=== PATIENT | male | born 1985 | race Caucasian/White ===

== ENCOUNTER 2018-12-12 15:26 | Emergency (ER) | payer SELFPAY ==
--- NOTE | 2018-12-12 15:41 | ER Report ---
History and Physical Time Seen By MD: 15:41 Hx. of Stated Complaint: AREA OF HEAT PAIN AND REDNESS OVER R FOOT, PAIN BEGAN YESTERDAY, NO KNOWN INJURY HPI/ROS CHIEF COMPLAINT: Right foot pain HISTORY OF PRESENT ILLNESS: 33-year-old male patient presents to emergency room with complaint of right foot pain. Patient states that he has had pain for the past several days. Patient states that he has swelling at the base of his second and third toe. He states that he has significant amounts of pain when he walks. He did note that he has redness and heat to the top of the foot. Patient states that he has not had any injury to the foot. He denies having any fevers or chills. He denies any nausea, vomiting or diarrhea. Patient states that he does have significant amounts of pain with ambulation. He states he does tend to walk on the outside of his foot to prevent from putting a a lot of weight on the bottom of his foot. REVIEW OF SYSTEMS: Respiratory: No cough, no dyspnea. Cardiovascular: No chest pain, no palpitations. Gastrointestinal: No vomiting, no abdominal pain. Musculoskeletal: No back pain. Allergies: Coded Allergies: No Known Drug Allergies (Unverified , 12/12/18) Home Meds Active Scripts Hydrocodone Bit/Acetaminophen (HYDROCODON-ACETAMINOPHEN 5-325) 1 Each Tablet, 1 EACH PO Q4-6H PRN for PAIN, #8 TAB Prov:TRA MURCIA 12/12/18 Sulfamethoxazole/Trimet 800-160 Mg Tab (BACTRIM DS TABLET) 1 Each Tablet, 1 TAB PO Q12H, #20 TAB Prov:TRA MURCIA 12/12/18 Past Medical/Surgical History Patient has a past medical history of cellulitis, marijuana abuse, depression. Patient denies any surgical history. Reviewed Nurses Notes: Yes Hx Substance Use Disorder: Yes (WEED) Hx Alcohol Use: No Constitutional Vital Sign - Last 24 Hours 12/12/18 12/12/18 12/12/18 12/12/18 15:26 15:33 15:35 15:41 Temp 98.1 Pulse ??? 69 74 Resp 16 B/P (MAP) 120/85 (97) 120/85 Pulse Ox 96 96 O2 Delivery Room Air 12/12/18 12/12/18 12/12/18 12/12/18 15:56 16:00 16:11 16:26 Pulse ??? 64 75 B/P (MAP) 114/64 (81) Pulse Ox 93 95 94 12/12/18 12/12/18 12/12/18 12/12/18 16:30 16:56 17:00 17:11 Pulse 65 69 B/P (MAP) 102/81 (88) 127/77 (94) Pulse Ox 96 100 12/12/18 12/12/18 12/12/18 17:16 17:30 17:31 Pulse 68 77 B/P (MAP) 106/92 (97) Pulse Ox 96 96 Physical Exam General Appearance: The patient is alert, has no immediate need for airway protection and no current signs of toxicity. Respiratory: Chest is non tender, lungs are clear to auscultation. Cardiac: regular rate and rhythm Gastrointestinal: Abdomen is soft and non tender, no masses, bowel sounds normal. Musculoskeletal: Neck: Neck is supple and non tender. Extremities have full range of motion and are non tender. Patient does have erythema, swelling to the right foot. Is tender to touch. Does feel a have some swelling on the bottom of the foot underneath the second third toes. Skin: No rashes or lesions. DIFFERENTIAL DIAGNOSIS: After history and physical exam differential diagnosis was considered for cellulitis, gout, abscess. Medical Decision Making Data Points Result Diagram: 12/12/18 1610 12/12/18 1610 Laboratory Hematology Test 12/12/18 16:10 Red Blood Count 5.34 M/uL (4.00-5.60) Mean Corpuscular Volume 84.9 fL (80.0-96.0) Mean Corpuscular Hemoglobin 28.9 pg (26.0-33.0) Mean Corpuscular Hemoglobin Concent 34.1 g/dL (32.0-36.0) Red Cell Distribution Width 13.8 % (11.5-14.5) Mean Platelet Volume 8.3 fL (7.2-11.1) Neutrophils (%) (Auto) 69.5 % (39.4-72.5) Lymphocytes (%) (Auto) 21.7 % (17.6-49.6) Monocytes (%) (Auto) 7.5 % (4.1-12.4) Eosinophils (%) (Auto) 0.9 % (0.4-6.7) Basophils (%) (Auto) 0.4 % (0.3-1.4) Nucleated RBC Relative Count (auto) 0.0 /100WBC Neutrophils # (Auto) 7.7 K/uL (2.0-7.4) Lymphocytes # (Auto) 2.4 K/uL (1.3-3.6) Monocytes # (Auto) 0.8 K/uL (0.3-1.0) Eosinophils # (Auto) 0.1 K/uL (0.0-0.5) Basophils # (Auto) 0.0 K/uL (0.0-0.1) Nucleated RBC Absolute Count (auto) 0.00 K/uL Sodium Level 141 mmol/L (137-145) Potassium Level 4.0 mmol/L (3.5-5.0) Chloride Level 102 mmol/L (98-107) Carbon Dioxide Level 30 mmol/L (22-30) Blood Urea Nitrogen 12 mg/dl (9-21) Creatinine 0.90 mg/dl (0.66-1.25) Glomerular Filtration Rate Calc > 60.0 Random Glucose 107 mg/dl (75-110) Calcium Level 9.2 mg/dl (8.4-10.2) Total Bilirubin 0.3 mg/dl (0.2-1.3) Aspartate Amino Transf (AST/SGOT) 37 U/L (0-35) Alanine Aminotransferase (ALT/SGPT) 46 U/L (0-56) Alkaline Phosphatase 62 U/L (0-126) Total Protein 7.5 g/dl (6.3-8.2) Albumin 4.4 g/dl (3.5-5.0) Chemistry Test 12/12/18 16:10 White Blood Count 11.1 k/uL (4.5-11.0) Red Blood Count 5.34 M/uL (4.00-5.60) Hemoglobin 15.5 g/dL (14.0-18.0) Hematocrit 45.4 % (42.0-52.0) Mean Corpuscular Volume 84.9 fL (80.0-96.0) Mean Corpuscular Hemoglobin 28.9 pg (26.0-33.0) Mean Corpuscular Hemoglobin Concent 34.1 g/dL (32.0-36.0) Red Cell Distribution Width 13.8 % (11.5-14.5) Platelet Count 225 K/uL (150-450) Mean Platelet Volume 8.3 fL (7.2-11.1) Neutrophils (%) (Auto) 69.5 % (39.4-72.5) Lymphocytes (%) (Auto) 21.7 % (17.6-49.6) Monocytes (%) (Auto) 7.5 % (4.1-12.4) Eosinophils (%) (Auto) 0.9 % (0.4-6.7) Basophils (%) (Auto) 0.4 % (0.3-1.4) Nucleated RBC Relative Count (auto) 0.0 /100WBC Neutrophils # (Auto) 7.7 K/uL (2.0-7.4) Lymphocytes # (Auto) 2.4 K/uL (1.3-3.6) Monocytes # (Auto) 0.8 K/uL (0.3-1.0) Eosinophils # (Auto) 0.1 K/uL (0.0-0.5) Basophils # (Auto) 0.0 K/uL (0.0-0.1) Nucleated RBC Absolute Count (auto) 0.00 K/uL Glomerular Filtration Rate Calc > 60.0 Calcium Level 9.2 mg/dl (8.4-10.2) Total Bilirubin 0.3 mg/dl (0.2-1.3) Aspartate Amino Transf (AST/SGOT) 37 U/L (0-35) Alanine Aminotransferase (ALT/SGPT) 46 U/L (0-56) Alkaline Phosphatase 62 U/L (0-126) Total Protein 7.5 g/dl (6.3-8.2) Albumin 4.4 g/dl (3.5-5.0) EKG/Imaging Imaging INDICATION: foot pain, possible abscess. DATE: 12/12/2018 4:59 PM. TECHNIQUE: CT FOOT W/ RT. Contrast-enhanced axial CT imaging was performed through the right foot and ankle with sagittal and coronal reformats. 90 mL Iso carmen-370 administered. One of the following dose optimization techniques was utilized in the performance of this exam: Automated exposure control; adjustment of the mA and/or kV according to the patient's size; or use of an iterative reconstruction technique. Specific details can be referenced in the facility's radiology CT exam operational policy. COMPARISON: No comparison available. FINDINGS: Bony alignment is normal. There is no fracture or dislocation. The ossific densities at the tip of the distal fibula are well corticated but could be from old injury. Incidental os trigonum. Mild to moderate midfoot degenerative findings most notable at the dorsal margin of the navicular and middle cuneiform. Mild enthesopathy at the Achilles attachment at the calcaneus. A discrete fluid collection or abscess is not identified. There is mild soft tissue edema along the undersurface of the foot near the head of the first metatarsal. IMPRESSION: 1. No acute osseous abnormality. 2. A discrete fluid collection or abscess is not identified. Report Dictated By: Khurram Dailey MD at 12/12/2018 4:59 PM Report E-Signed By: Khurram Dailey MD at 12/12/2018 5:04 PM ED Course/Re-evaluation ED Course Patient has been doing examined, history and physical were obtained. Differential diagnoses were considered. On examination patient did have some swelling, erythema to the right foot. A CT scan of the foot was done looking for soft tissue abscess. There is no fluid filled areas. There was some swelling noted. This appears to be more of a cellulitis. We will go ahead and treat him with antibiotics. I discussed findings with patient. Patient did request something for pain. I will give him a limited supply of pain medication get through the next 48 hours. At that time states pain will be significant. Patient is return to emergency room if condition worsens. He is follow-up with his primary care provider next week. Patient verbalized understanding and agreement with plan. Decision to Disposition Date: Dec 12, 2018 Decision to Disposition Time: 17:20 Depart Departure Latest Vital Signs Vital Signs Date Time Temp Pulse Resp B/P (MAP) Pulse Ox O2 Delivery O2 Flow Rate FiO2 12/12/18 17:31 77 96 12/12/18 17:30 106/92 (97) 12/12/18 15:35 98.1 16 Room Air Impression: Primary Impression: Cellulitis of right foot Condition: Improved Disposition: HOME OR SELF-CARE New Scripts Hydrocodone Bit/Acetaminophen (HYDROCODON-ACETAMINOPHEN 5-325) 1 Each Tablet 1 EACH PO Q4-6H PRN for PAIN, #8 TAB Prov: TRA MURCIA 12/12/18 Sulfamethoxazole/Trimet 800-160 Mg Tab (BACTRIM DS TABLET) 1 Each Tablet 1 TAB PO Q12H, #20 TAB Prov: TRA MURCIA 12/12/18 Patient Instructions: Cellulitis (ED) Additional Instructions: Limit activity by pain. Get plenty of rest. Follow up with your primary care provider in the next week. Return to the ER if condition worsens. Elevate foot when not active. Take the medication as prescribed. TRA MURCIA Dec 12, 2018 15:41
[2018-12-12] MEDS ORDERED: IOPAMIDOL 76% 100 ML INFUS BTL 100 ML ONE (16:20)
[2018-12-12 16:22] LABS: PLATELET COUNT, AUTOMATED 225 K/uL (150-450)
[2018-12-12] MEDS ORDERED: cefTRIAXone(*) 1 GM VIAL 1 GM in NS(*) 0.9% 100 ML ADDVANT BAG 100 ML IVPB ONE (16:55)
--- NOTE | 2018-12-12 17:08 | RADIOLOGY IMAGING REPORT ---
FACILITY: [facility] - [place] PATIENT NAME: Hari Hollis : 1985 MR: [id number] V: [id number] EXAM DATE: ORDERING PHYSICIAN: TRA MURCIA TECHNOLOGIST: Location: [facility] Patient: Hari Hollis : 1985 Visit/Account:[id number] Date of Sevice: 12/12/2018 INDICATION: foot pain, possible abscess. DATE: 12/12/2018 4:59 PM. TECHNIQUE: CT FOOT W/ RT. Contrast-enhanced axial CT imaging was performed through the right foot an d ankle with sagittal and coronal reformats. 90 mL Isovue-370 administered. One of the following do se optimization techniques was utilized in the performance of this exam: Automated exposure control; adjustment of the mA and/or kV according to the patient's size; or use of an iterative reconstructio n technique. Specific details can be referenced in the facility's radiology CT exam operational [place]. COMPARISON: No comparison available. FINDINGS: Bony alignment is normal. There is no fracture or dislocation. The ossific densities at t he tip of the distal fibula are well corticated but could be from old injury. Incidental os trigonum . Mild to moderate midfoot degenerative findings most notable at the dorsal margin of the navicular and middle cuneiform. Mild enthesopathy at the Achilles attachment at the calcaneus. A discrete fluid collection or abscess is not identified. There is mild soft tissue edema along the undersurface of the foot near the head of the first metatarsal. IMPRESSION: 1. No acute osseous abnormality. 2. A discrete fluid collection or abscess is not identified. Report Dictated By: Khurram Dailey MD at 12/12/2018 4:59 PM Report E-Signed By: Khurram Dailey MD at 12/12/2018 5:04 PM WSN:[id number]
[2018-12-12] MEDS ORDERED: SULF-198 PO (17:22)
[2018-12-12] MEDS ORDERED: HYDR-385 PO (17:29)
[2018-12-12 17:30] VITALS: BP 106/92
== END 2018-12-12 17:41 | disposition home or self-care (01) ==
LOC: ER 15:44
DX: L03.115 Cellulitis of right lower limb (principal)
CPT/HCPCS: 73701; 85025; 96365; 99284; J0696; J7050; Q9967; 82040; 82247; 82310; 82374; 82435; 82565; 82947; 84075; 84132; 84155; 84295; 84450; 84460; 84520

== ENCOUNTER 2019-05-31 21:12 | Emergency (ER) | payer SELFPAY ==
[~2019-05-31 21:12] MED LIST: HYDR-385 PO; SULF-198 PO
--- NOTE | 2019-05-31 21:15 | ER Report ---
History and Physical Time Seen By MD: 21:11 (ELISHA BLANCHARD DO) HPI/ROS CHIEF COMPLAINT: Left knee swelling HISTORY OF PRESENT ILLNESS: 33-year-old male presents with painful left knee swe lling. He recalls no trauma. He had spontaneous swelling over the last 2 days. He is unable to straighten his knee all the way it feels like is a lot of pressure and it. He's had no fever, chills or recent illness. Patient admits he does have a history of gout with numerous toe swelling events. 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 There are no abrasions or open wounds to suggest potential infection. (ELISHA BLANCHARD DO) Allergies: Coded Allergies: No Known Drug Allergies (Unverified , 05/31/19) Home Meds Active Scripts Hydrocodone Bit/Acetaminophen (HYDROCODON-ACETAMINOPHEN 5-325) 1 Each Tablet, 1 EACH PO Q4-6H PRN for PAIN, #12 TAKE ONE TABLET BY MOUTH EVERY 4-6 HOURS NEEDED FOR PAIN Prov:ELISHA BLANCHARD DO 05/31/19 Prednisone (PREDNISONE) 20 Mg Tablet, 20 MG PO QDAY for reduced joint inflammation, #9 2 Refills 2 pills by mouth daily for 3 days then 1 pill by mouth for 3 days Prov:ELISHA BLANCHARD 05/31/19 Discontinued Scripts Hydrocodone Bit/Acetaminophen (HYDROCODON-ACETAMINOPHEN 5-325) 1 Each Tablet, 1 EACH PO Q4-6H PRN for PAIN, #8 TAB Prov:TRA MURCIA [facility] 12/12/18 Sulfamethoxazole/Trimet 800-160 Mg Tab (BACTRIM DS TABLET) 1 Each Tablet, 1 TAB PO Q12H, #20 TAB Prov:TRA MURCIA [facility] 12/12/18 Reviewed Nurses Notes: Yes Old Medical Records Reviewed: Yes (ELISHA BLANCHARD DO) Hx Substance Use Disorder: Yes (WEED) Hx Alcohol Use: No (ELISHA BLANCHARD DO) Constitutional Vital Sign - Last 24 Hours 05/31/19 21:17 Temp 98.1 Pulse 74 Resp 12 B/P (MAP) 150/93 Pulse Ox 94 O2 Delivery Room Air (ELLE PRATHER [employer]-) Physical Exam General appearance: Alert no distress. Respiratory: Chest is non tender, lungs are clear to auscultation. Cardiac: Regular rate and rhythm Extremities: Examination of the left knee reveals a joint effusion. There is no overlying erythema or abrasion. The joint feels warm to palpation. There is ballotable fluid under the patella. Patient is able to flex his knee to about 90 but has difficulty with pain and pressure. DIFFERENTIAL DIAGNOSIS: After history and physical exam differential diagnosis was considered for sprain, strain, fracture, dislocation, contusion, doubt, osteoarthritis, septic joint (ELISHA BLANCHARD DO) Medical Decision Making EKG/Imaging Imaging X-ray: Left knee, 3 views was obtained. I viewed the images myself on the PACS system. My interpretation of the images is: No fracture no dislocation or malalignment. The radiologist interpretation had no clinically significant variation from this interpretation. (ELISHA BLANCHARD DO) ED Course/Re-evaluation ED Course Patient was admitted to an examination room. H&P was done. The dental diagnoses was considered. Patient with acute knee swelling. He reports a suspicious history of gout in the past. Patient has diagnostic x-rays which are unremarkable. Patient has arthrocentesis performed. A specimen was sent off to the lab. It's consistent with knee arthritis. There were no crystals seen. Culture and Gram stain are pending. Patient's advised conservative treatment with ibuprofen and Lortab for pain relief. He's advised to rest for for 5 days. Patient advised to follow-up with primary care. He is provided numbers for primary care providers. Decision to Disposition Date: May 31, 2019 Decision to Disposition Time: 21:54 (ELISHA BLANCHARD DO) ED Course Procedure: Arthrocentesis. After verbal informed consent from patient explaining the risks including infection and bleeding a arthrocentesis was performed on the left knee. The arthrocentesis was performed after the patient was prepped and draped in the usual fashion. The joint was anesthetized with 1% lidocaine. Approximately 18 cc of aida colored, viscous fluid was obtained. There were no complications. The procedure was performed by myself. (ELLE PRATHER) Depart Departure Latest Vital Signs Vital Signs Date Time Temp Pulse Resp B/P (MAP) Pulse Ox O2 Delivery O2 Flow Rate FiO2 05/31/19 21:17 98.1 74 12 150/93 94 Room Air (ELLE PRATHER) Impression: Primary Impression: Effusion, left knee Additional Impression: Gout Condition: Improved Disposition: HOME OR SELF-CARE Referrals: MILTON TODD MD, FARRUKH MD New Scripts Hydrocodone Bit/Acetaminophen (HYDROCODON-ACETAMINOPHEN 5-325) 1 Each Tablet 1 EACH PO Q4-6H PRN for PAIN, #12 TAKE ONE TABLET BY MOUTH EVERY 4-6 HOURS NEEDED FOR PAIN Prov: ELISHA BLANCHARD DO 05/31/19 Prednisone (PREDNISONE) 20 Mg Tablet 20 MG PO QDAY for reduced joint inflammation, #9 2 Refills 2 pills by mouth daily for 3 days then 1 pill by mouth for 3 days Prov: LOELISHA Mackay DO 05/31/19 Patient Instructions: Arthritis (ED) Additional Instructions: Take ibuprofen 200 mg 3-4 tablets 3 times a day with food Apply ice packs to your knee for the 1st 2 days then switch to heat such as a heating pad Rest as much as possible over the next 4-5 days. Follow-up with your primary care doctor to have a blood uric acid level checked Problem Qualifiers Additional Impression: Gout Gout site: knee Gout etiology: unspecified cause Chronicity: acute Laterality: left Qualified Codes: M10.9 - Gout, unspecified ELISHA BLANCHARD DO May 31, 2019 21:15 ELLE PRATHER [facility] May 31, 2019 21:48
[2019-05-31 21:17] VITALS: BP 150/93
[2019-05-31] MEDS ORDERED: PRED20TA6 PO (22:07)
[2019-05-31] MEDS ORDERED: LOR5/325 PO (22:07)
--- NOTE | 2019-05-31 22:17 | RADIOLOGY IMAGING REPORT ---
FACILITY: [facility] [place] PATIENT NAME: Hari Hollis : 1985 MR: [id number] V: [id number] EXAM DATE: ORDERING PHYSICIAN: ELISHA BLANCHARD TECHNOLOGIST: Location: [facility] Patient: Hari Hollis : 1985 Visit/Account:[id number] Date of Sevice: 05/31/2019 KNEE 3 VIEW LEFT Indication: Left knee pain and swelling after injury. Comparison: None available Findings: 3 views left knee were obtained. No fracture or dislocation. No joint effusion. No bony lesions. No significant degenerative changes. Soft tissues are unremarkable. IMPRESSION: 1.No acute osseous abnormality of the left knee Report Dictated By: Michael Gaona at 05/31/2019 10:06 PM Report E-Signed By: Michael Gaona at 05/31/2019 10:09 PM WSN:[id number]
[2019-05-31] MEDS ORDERED: ACET/HYDROC 5/325MG TH ER ONLY 2 TAB/BOTTLE PO ONE (23:00)
== END 2019-05-31 23:05 | disposition home or self-care (01) ==
LOC: ER 21:16
DX: M25.462 Effusion, left knee (principal); M10.9 Gout, unspecified
CPT/HCPCS: 82945; 87071; 87205; 89050; 89060; 99284